=== PATIENT | female | born 1995 | race American Indian/Alaskan Native ===

== ENCOUNTER 2018-11-24 16:36 | Emergency (ER) | payer BC, OTHER ==
--- NOTE | 2018-11-24 17:02 | Event Note ---
ED Screening Note ED Screening Note: concerned for STI This initial assessment/diagnostic orders/clinical plan/treatment(s) is/are subject to change based on patients health status, clinical progression and re- assessment by fellow clinical providers in the ED. Further treatment and workup at subsequent clinical providers discretion. Patient/guardian urged not to elope from the ED as their condition may be serious if not clinically assessed and managed. Initial orders include: ua preg
[2018-11-24 18:59] LABS: HCG Qualitative,Urine Negative (Negative)
[2018-11-24 19:04] LABS: Amorphous Crystals,Urine 3+; Bilirubin,Urine NEG (Negative); Blood,Urine NEG (Negative); Color,Urine Yellow (Yellow); Protein,Urine <15 mg/dL mg/dL (Negative)
[2018-11-24 19:05] LABS: RBC,Urine < 1.0 /HPF (0.0-6.0)
--- NOTE | 2018-11-24 19:31 | Emergency Department Report ---
ED Female HPI - General Chief complaint: Urogenital-Female Stated complaint: STD Time Seen by Provider: 11/24/18 17:01 Source: patient Mode of arrival: Ambulatory Limitations: No Limitations - History of Present Illness Initial comments: This is a 23-year-old female presents to the emergency room with concerns of possibly nelly an STD. Patient states that her partner informed her he was positive for an STD. Patient stated reports vaginal bleeding for 4-5 days and on Depo-Provera. She reports some pelvic cramping which she thought was related to menses. She denies vaginal discharge, back pain, hematuria, urinary frequency, urgency, and dysuria. MD Complaint: possible STD Location: suprapubic Radiation: non-radiating Severity: mild Severity scale (0 -10): 2 Quality: cramping Consistency: intermittent Improves with: none Worsens with: none Are you Now?: No Last Menstrual Period: 11/20/18 EDC: 08/27/19 Associated Symptoms: denies other symptoms - Related Data Sexually active: Yes Previous Rx's Medication Instructions Recorded Last Taken Type Naproxen [Naprosyn TAB] 500 mg PO BID #20 tablet 04/25/14 Unknown Rx methOCARBAMOL [Robaxin] 500 mg PO Q6H PRN #10 tablet 04/25/14 Unknown Rx metroNIDAZOLE [Flagyl TAB] 500 mg PO Q12HR #10 tab 11/24/18 Unknown Rx Allergies Allergy/AdvReac Type Severity Reaction Status Date / Time Penicillins AdvReac Rash Verified 04/25/14 16:22 ED Review of Systems ROS: Stated complaint: STD Other details as noted in HPI Constitutional: denies: chills, fever Respiratory: denies: cough, shortness of breath, wheezing Cardiovascular: denies: chest pain, palpitations Gastrointestinal: abdominal pain. denies: nausea, diarrhea Genitourinary: denies: urgency, dysuria, discharge Skin: denies: rash, lesions Neurological: denies: headache, weakness, paresthesias Psychiatric: denies: anxiety, depression ED Past Medical Hx - Past Medical History Previous Medical History?: No Hx Hypertension: No Hx CVA: No Hx Heart Attack/AMI: No Hx Congestive Heart Failure: No Hx Diabetes: No Hx Deep Vein Thrombosis: No Hx Pulmonary Embolism: No Hx GERD: No Hx Liver Disease: No Hx Renal Disease: No Hx of Cancer: No Hx Sickle Cell Disease: No Hx Arthritis: No Hx Headaches / Migraines: No Hx Seizures: No Hx Kidney Stones: No Hx Psychiatric Treatment: No Hx Asthma: No Hx COPD: No Hx Dementia: No Hx HIV: No - Surgical History Past Surgical History?: No Hx Coronary Stent: No Hx Open Heart Surgery: No Hx Pacemaker: No Hx Internal Defibrillator: No Hx Cholecystectomy: No Hx Appendectomy: No Hx Breast Surgery: No - Social History Smoking Status: Never Smoker Substance Use Type: None - Medications Home Medications: Home Medications Medication Instructions Recorded Confirmed Last Taken Type Naproxen [Naprosyn TAB] 500 mg PO BID #20 tablet 04/25/14 Unknown Rx methOCARBAMOL [Robaxin] 500 mg PO Q6H PRN #10 tablet 04/25/14 Unknown Rx metroNIDAZOLE [Flagyl TAB] 500 mg PO Q12HR #10 tab 11/24/18 Unknown Rx ED Physical Exam - General Limitations: No Limitations General appearance: alert, in no apparent distress, obese - Respiratory Respiratory exam: Present: normal lung sounds bilaterally. Absent: respiratory distress - Cardiovascular Cardiovascular Exam: Present: regular rate, normal rhythm. Absent: systolic murmur, diastolic murmur, rubs, gallop - GI/Abdominal GI/Abdominal exam: Present: soft, normal bowel sounds. Absent: distended, tenderness, guarding, rebound, rigid, organomegaly, mass - Back Exam Back exam: Absent: CVA tenderness (R), CVA tenderness (L) - Neurological Exam Neurological exam: Present: alert, oriented X3, normal gait - Psychiatric Psychiatric exam: Present: normal affect, normal mood - Skin Skin exam: Present: warm, dry, intact, normal color. Absent: rash ED Course Vital Signs 11/24/18 11/24/18 16:38 20:55 Temperature 98.6 F Pulse Rate 99 H 78 Respiratory 16 19 Rate Blood Pressure 139/82 Blood Pressure 139/82 130/80 [Right] O2 Sat by Pulse 99 99 Oximetry ED Medical Decision Making - Lab Data Lab Results 11/24/18 Range/Units 18:35 Urine Color Yellow (Yellow) Urine Turbidity Turbid (Clear) Urine pH 8.0 H (5.0-7.0) Ur Specific [place] 1.015 (1.003-1.030) Urine Protein <15 mg/dl (Negative) mg/dL Urine Glucose (UA) Neg (Negative) mg/dL Urine Ketones Neg (Negative) mg/dL Urine Blood Neg (Negative) Urine Nitrite Neg (Negative) Ur Reducing Substances Not Reportable Urine Bilirubin Neg (Negative) Urine Ictotest Not Reportable Urine Urobilinogen 2.0 (<2.0) mg/dL Ur Leukocyte Esterase Neg (Negative) Urine WBC (Auto) 1.0 (0.0-6.0) /HPF Urine RBC (Auto) < 1.0 (0.0-6.0) /HPF U Epithel Cells (Auto) 3.0 (0-13.0) /HPF Amorphous Crystals 3+ Urine HCG, Qual Negative (Negative) - Medical Decision Making This is a 23-year-old -[place] female with concerns of possibly contracted an STD. Patient was examined by me. Vitals are stable and in no acute distress. Patient currently on menses and experienced some abdominal cramping but on FOCAL exam negative abdominal tenderness. She denies vaginal discharge. A pelvic exam was not performed due to no vaginal discharge or pelvic pain. I obtained a urinalysis, urine hCG, gonorrhea and chlamydia. The gonorrhea and chlamydia is pending. Empirically treated with gentamicin 240 mg IM, metronidazole 2 g by mouth, and azithromycin 1 g by mouth. Continue metronidazole 500 mg by mouth twice a day 5 days without refills. Discharged home in stable condition. Discussed prevention options. F/U with PCP or Health Department. Critical care attestation.: If time is entered above; I have spent that time in minutes in the direct care of this critically ill patient, excluding procedure time. ED Disposition Clinical Impression: Exposure to STD Disposition: DC-01 TO HOME OR SELFCARE Is pt being admited?: No Does the pt Need Aspirin: No Condition: Stable Instructions: Sexually Transmitted Diseases (ED), Safe Sex (ED) Additional Instructions: Avoid drinking alcohol while taking antibiotics and for 24 hours after completion. Continue safe sexual intercourse. Follow up with Primary Care Provider or health department. Prescriptions: metroNIDAZOLE [Flagyl TAB] 500 mg PO Q12HR #10 tab Referrals: [facility] [Provider Group] - 3-5 Days [facility] [Provider Group] - 3-5 Days [facility] [Provider Group] - 3-5 Days Forms: Work/School Release Form(ED) Time of Disposition: 20:06
[2018-11-24] MEDS ORDERED: FLAGYL PO ONE (19:38)
[2018-11-24] MEDS ORDERED: ZITHROMAX PO ONE (19:38)
[2018-11-24] MEDS ORDERED: GENTAMICIN IM ONE (19:45)
[2018-11-24 20:56] VITALS: BP 130/80
== END 2018-11-24 20:50 | disposition home or self-care (01) ==
LOC: ED 16:36
DX: A64 Unspecified sexually transmitted disease (principal); Z79.899 Other long term (current) drug therapy; Z88.0 Allergy status to penicillin
CPT/HCPCS: 81001; 81025; 87591; 96372; 99283; J1580

== ENCOUNTER 2021-08-30 16:50 | Emergency (ER) | payer SELFPAY | END 2021-08-31 18:00 | disposition left against medical advice (07) | LOC: ED 16:50 | DX: Z11.3 Encounter for screening for infections with a predominantly sexual mode of transmission (principal); Z53.21 Procedure and treatment not carried out due to patient leaving prior to being seen by health care provider ==